=== PATIENT | female | born 1960 | race Caucasian/White ===

== ENCOUNTER 2022-05-22 12:46 | Outpatient (CLI) | payer BC | END 2022-05-22 12:47 | disposition home or self-care (01) | LOC: BICULT 12:46 | PROVIDERS: ATTEND Nurse Practitioner Family | DX: N28.89 Other specified disorders of kidney and ureter (principal); N13.30 Unspecified hydronephrosis | CPT/HCPCS: 76770 ==

== ENCOUNTER 2022-06-13 10:58 | Outpatient (CLI) | payer BC | END 2022-06-13 10:59 | disposition home or self-care (01) | LOC: CT 10:58 | PROVIDERS: ATTEND Nurse Practitioner Family | DX: R42 Dizziness and giddiness (principal); R20.0 Anesthesia of skin; R51.9 Headache, unspecified; G89.28 Other chronic postprocedural pain; E11.65 Type 2 diabetes mellitus with hyperglycemia; I10 Essential (primary) hypertension; N28.89 Other specified disorders of kidney and ureter; F43.21 Adjustment disorder with depressed mood; Z87.39 Personal history of other diseases of the musculoskeletal system and connective tissue; Z79.4 Long term (current) use of insulin; Z98.1 Arthrodesis status | CPT/HCPCS: 70450; 72125 ==

== ENCOUNTER 2022-06-21 13:10 | Outpatient (CLI) | payer BC | END 2022-06-21 13:11 | disposition home or self-care (01) | LOC: TBSIIMAG 13:10 | PROVIDERS: ATTEND Nurse Practitioner Family | DX: R51.9 Headache, unspecified (principal); R42 Dizziness and giddiness; R20.0 Anesthesia of skin; I67.89 Other cerebrovascular disease | CPT/HCPCS: 70551 ==

== ENCOUNTER 2022-07-12 09:07 | Outpatient (CLI) | payer BC | END 2022-07-12 09:08 | disposition home or self-care (01) | LOC: TBSIIMAG 09:07 | PROVIDERS: ATTEND Neurological Surgery | DX: M47.22 Other spondylosis with radiculopathy, cervical region (principal); M43.12 Spondylolisthesis, cervical region; Z98.890 Other specified postprocedural states | CPT/HCPCS: 72040 ==

== ENCOUNTER 2022-07-23 12:45 | Outpatient (CLI) | payer BC | END 2022-07-23 12:46 | disposition home or self-care (01) | LOC: TBSIIMAG 12:45 | PROVIDERS: ATTEND Neurological Surgery | DX: M47.22 Other spondylosis with radiculopathy, cervical region (principal); Z98.1 Arthrodesis status | CPT/HCPCS: 72050; 72141 ==

== ENCOUNTER 2022-10-15 09:03 | Outpatient (CLI) | payer BC ==
[2022-10-15 09:55] LABS: #Basophils 0.1 10x3/uL (0.0-0.2); #Eosinphils 0.1 10x3/uL (0.0-0.5); #Monocytes 0.3 10x3/uL (0.0-1.1); #Neutrophils 1.8 10x3/uL (1.5-8.4); %Basophils 1.5 % (0.0-2.0); %Monocytes 7.6 % (0.0-10.0); %Neutrophils 52.6 % (40.0-75.0); Hemoglobin 13.9 g/dL (12.0-15.5); Mean Corpuscular HGB CONC 32.3 g/dL (32.0-36.0); Mean Corpuscular Hemoglobin 33.3 pg (27.0-33.0); Mean Corpuscular Volume 103.1 fl (81.6-98.3); Mean Platelet Volume 10.6 fl (7.4-10.4); Platelet Count 117 10x3/uL (150-450); Red Blood Cell (RBC) Count 4.17 10x6/uL (3.90-5.03); White Blood Cell (WBC) Count 3.4 10x3/uL (3.5-10.5)
[2022-10-15 10:30] LABS: Anion Gap 13 mmol/L (10-20); BUN (Urea Nitrogen) 10 mg/dL (9.8-20.1); Calc. Creatinine Clearance 0 mL/min (70-130); Calcium 8.7 mg/dL (7.8-10.44); Carbon Dioxide 23 mmol/L (23-31); Chloride 106 mmol/L (98-107); Estimated GFR 89; Glucose 269 mg/dL (80-115); Potassium 4.3 mmol/L (3.5-5.1); Sodium 138 mmol/L (136-145)
== END 2022-10-15 09:04 | disposition home or self-care (01) ==
LOC: LABBT 09:03
PROVIDERS: ATTEND Orthopaedic Surgery Hand Surgery
DX: Z01.818 Encounter for other preprocedural examination (principal); G56.03 Carpal tunnel syndrome, bilateral upper limbs
CPT/HCPCS: 80048; 85025; 93005; 93010

== ENCOUNTER 2022-10-22 11:36 | Day surgery (SDC) | payer BC ==
[2022-10-18 10:24] VITALS: BMI 35.4
[2022-10-22] MEDS ORDERED: Sodium Chloride 0.9% 100 ML ONE (13:56)
[2022-10-22] MEDS ORDERED: CEFAZOLIN 2 GM VIAL ONE (13:56)
[2022-10-22] MEDS ORDERED: fentaNYL PF 100 MCG/2 ML SYRINGE ONE (13:59)
[2022-10-22] MEDS ORDERED: ePHEDrine 50 MG/ML VIAL ONE (14:15)
[2022-10-22] MEDS ORDERED: PROPOFOL 200 MG/20 ML VIAL ONE (14:15)
[2022-10-22] MEDS ORDERED: Ondansetron PF 4 MG/2 ML Vial ONE (14:15)
[2022-10-22] MEDS ORDERED: Bupivacaine PF 0.5% 30 ML VIAL ONE (14:16)
[2022-10-22] MEDS ORDERED: Bacitracin Zinc Ointment 30 gm TUBE ONE (14:48)
[2022-10-22] MEDS ORDERED: Ketorolac Tromethamine 30 MG/ML VIAL ONE ×2 (15:20)
[2022-10-22] MEDS ORDERED: Promethazine HCl 25 MG/ML VIAL ONE (15:26)
[2022-10-22] MEDS ORDERED: Fentanyl 100 MCG/2 ML VIAL ONE (15:52)
[2022-10-22] MEDS ORDERED: HYDROcodone/Acetaminophen 5/325 mg Tablet ONE ×2 (16:52→16:53)
== END 2022-10-22 17:46 | disposition home or self-care (01) ==
LOC: SDC 11:36
PROVIDERS: ATTEND Orthopaedic Surgery Hand Surgery
PROC: 01N50ZZ Release Median Nerve, Open Approach (ICD-10-PCS; principal; 2022-10-22)
DX: G56.03 Carpal tunnel syndrome, bilateral upper limbs (principal); M18.0 Bilateral primary osteoarthritis of first carpometacarpal joints; I10 Essential (primary) hypertension; E11.42 Type 2 diabetes mellitus with diabetic polyneuropathy; E66.9 Obesity, unspecified; Z68.35 Body mass index [BMI] 35.0-35.9, adult; Z87.891 Personal history of nicotine dependence; Z79.4 Long term (current) use of insulin; Z79.899 Other long term (current) drug therapy; Z88.8 Allergy status to other drugs, medicaments and biological substances
CPT/HCPCS: J1885; J2405; J2550; J2704; J3010; J3490; S0020